=== PATIENT | female | born 1990 | race American Indian/Alaskan Native ===

== ENCOUNTER 2017-08-22 18:49 | Emergency (ER) | payer OTHER ==
[2017-08-22 18:55] VITALS: BP 120/83
--- NOTE | 2017-08-22 20:30 | Emergency Department Report ---
Chief Complaint: Upper Respiratory Infection Stated Complaint: FLU-LIKE SYMPTOMS Time Seen by Provider: 08/22/17 20:16 - HPI History of Present Illness: Patient is a 27-year-old [place]i female withAsthma history is presenting with 3 weeks of cough. Patient states cough was mild initially and nonproductive however over the past week is now productive of yellow sputum with some mild shortness of breath. Patient states the cough is uncontrollable. Patient denies fever nausea vomiting bodyaches diarrhea chest pain at this time. - ROS Review of Systems: Review of systems negative except for those systems in the HPI - Exam Vital Signs: Vital Signs 08/22/17 18:53 Temperature 98.5 F Pulse Rate 117 H Respiratory 20 Rate Blood Pressure 120/83 O2 Sat by Pulse 100 Oximetry Physical Exam: PHYSICAL exam patient's HEENT is within normal limits and note she is not in no acute distress lungs clear to auscultation however she does have a bronchitic cough. Heart tones are normal abdomen soft nontender MSE screening note: Focused history and physical exam performed. Due to findings the following was ordered: ED Disposition for MSE Clinical Impression: Acute upper respiratory infection Disposition: [id number]-01 TO HOME OR SELFCARE Is pt being admited?: No Does the pt Need Aspirin: No Condition: Fair Instructions: Upper Respiratory Infection (ED) Prescriptions: ALBUTEROL Inhaler [ProAir HFA Inhaler] 2 puff IH QID PRN #1 inhalation PRN Reason: Shortness Of Breath Doxycycline [Vibramycin CAP] 100 mg PO Q12HR #14 capsule predniSONE [Deltasone] 20 mg PO QDAY #5 tab traMADol [Ultram] 50 mg PO Q6HR PRN #10 tablet PRN Reason: Pain Referrals: PRIMARY CARE, [Primary Care Provider] - 3-5 Days
== END 2017-08-22 20:38 | disposition home or self-care (01) ==
LOC: ED 18:49
DX: J06.9 Acute upper respiratory infection, unspecified (principal)
CPT/HCPCS: 99282

== ENCOUNTER 2018-02-05 19:42 | Emergency (ER) | payer SELFPAY | END 2018-02-06 01:42 | disposition left against medical advice (07) | LOC: ED 19:42 | DX: N93.8 Other specified abnormal uterine and vaginal bleeding (principal); Z53.21 Procedure and treatment not carried out due to patient leaving prior to being seen by health care provider ==

== ENCOUNTER 2018-09-23 19:05 | Emergency (ER) | payer MEDICAID ==
[2018-09-23 19:59] VITALS: BP 113/69
[2018-09-23 20:35] LABS: Bilirubin,Urine NEG (Negative); Blood,Urine NEG (Negative); Color,Urine Yellow (Yellow); Protein,Urine <15 mg/dL mg/dL (Negative); Urobilinogen,Urine < 2.0 mg/dL (<2.0)
[2018-09-23] MEDS ORDERED: NACL 0.9% 1000 ML 1,000 ML IV ONE (20:58)
[2018-09-23 21:20] LABS: Basophils % (Auto) 0.2 % (0.0-1.8); Eosinophils # (Auto) 0.1 K/mm3 (0.0-0.4); Eosinophils % (Auto) 1.4 % (0.0-4.3); Hematocrit 37.4 % (30.3-42.9); Hemoglobin 12.8 gm/dl (10.1-14.3); Lymphocytes # (Auto) 2.5 K/mm3 (1.2-5.4); Lymphocytes % (Auto) 24.1 % (13.4-35.0); Mean Corpuscular HGB Conc 34 % (30-34); Mean Corpuscular Volume 86 fl (79-97); Monocytes # (Auto) 0.7 K/mm3 (0.0-0.8); Monocytes % (Auto) 6.4 % (0.0-7.3); Platelet Count 238 K/mm3 (140-440); Red Blood Count 4.37 M/mm3 (3.65-5.03); Red Cell Distribution Width 13.3 % (13.2-15.2)
[2018-09-23] MEDS ORDERED: TYLENOL ONE (21:43)
[2018-09-23] MEDS ORDERED: ZOFRAN ODT ONE (21:44)
[2018-09-23] MEDS ORDERED: TYLENOL PO ONE (21:46)
[2018-09-23 21:48] LABS: Alanine Aminotransferase 9 units/L (7-56); Albumin 4.2 g/dL (3.9-5); BUN/Creatinine Ratio 12; Blood Urea Nitrogen 7 mg/dL (7-17); Calcium 9.6 mg/dL (8.4-10.2); Hemolysis Index 5
--- NOTE | 2018-09-23 22:33 | Emergency Department Report ---
ED Abdominal Pain HPI - General Chief Complaint: Abdominal Pain Stated Complaint: ABDOMINAL PAIN(14 1/2 WKS ) Time Seen by Provider: 09/23/18 22:33 Source: patient, family Mode of arrival: Ambulatory Limitations: No Limitations - History of Present Illness Initial Comments: This is 28-year-old female here reports that she has abdominal pain at 14 weeks . Patient states that she has have a pelvic pain times one day and now it is worse with increased urinary frequency patient says that she urinated 32 times today. Denies any pain with urination. She only reports pressure. She says she was sent to the emergency room by her [facility] for ultrasound. She states that she wanted make sure that her cervix was not stretching out. Denies any vaginal bleeding or vaginal discharge. Denies any concern for STDs. Pain is 8 out of 10 and feels a pressure. Last measured cycle was the 2016. Pain is intermittent and crampy located to pelvic area and no alleviating or exacerbating factors. MD Complaint: abdominal pain Onset/Timin -: days(s) Location: suprapubic Radiation: none Migration to: no migration Severity: moderate Severity scale (0 -10): 8 Quality: other (pressure) Consistency: intermittent Improves With: nothing Worsens With: nothing Context: other () Associated Symptoms: other (urinary frequency). denies: nausea, vomiting, diarrhea, fever, chills, constipation, dysuria, hematemesis, hematochezia, melena, hematuria, anorexia, syncope - Related Data LMP Date: 07/23/18 Previous Rx's Medication Instructions Recorded Last Taken Type Albuterol Sulfate [Ventolin HFA] 2 puff IH Q4H PRN #1 hfa.aer.ad 09/16/14 Unknown Rx Amoxicillin 500 mg PO QID #40 tablet 09/16/14 Unknown Rx Fluticasone Propionate [Flonase] 2 sprays NS QDAY #1 bottle 09/16/14 Unknown Rx Loratadine [Claritin] 10 mg PO DAILY #30 tablet 09/16/14 Unknown Rx Promethazine /Codeine 5 ml PO Q6H PRN #150 udc 09/16/14 Unknown Rx [Phenergan/Codeine 6.25-10 mg/5 ml] predniSONE [Deltasone] 20 mg PO QDAY #5 tab 09/16/14 Unknown Rx ALBUTEROL Inhaler (OR & NICU) 2 puff IH QID PRN #1 inhalation 08/22/17 Unknown Rx [ProAir HFA Inhaler] Doxycycline [Vibramycin CAP] 100 mg PO Q12HR #14 capsule 08/22/17 Unknown Rx predniSONE [Deltasone] 20 mg PO QDAY #5 tab 08/22/17 Unknown Rx traMADol [Ultram] 50 mg PO Q6HR PRN #10 tablet 08/22/17 Unknown Rx Allergies Allergy/AdvReac Type Severity Reaction Status Date / Time No Known Allergies Allergy Unverified 09/16/14 16:23 ED Review of Systems ROS: Stated complaint: ABDOMINAL PAIN(14 1/2 WKS ) Other details as noted in HPI Constitutional: denies: chills, fever ENT: denies: throat pain, congestion Respiratory: denies: cough, shortness of breath, wheezing Cardiovascular: denies: chest pain, palpitations, edema, syncope Gastrointestinal: abdominal pain. denies: nausea, vomiting, diarrhea, constipation, hematemesis, melena, hematochezia Genitourinary: frequency. denies: urgency, dysuria, hematuria, discharge Musculoskeletal: denies: back pain, joint swelling, arthralgia, myalgia Skin: denies: rash, pruritus Neurological: denies: headache, weakness, abnormal gait, vertigo ED Past Medical Hx - Past Medical History Previous Medical History?: No - Surgical History Past Surgical History?: No - Family History Family history: hypertension - Social History Smoking Status: Never Smoker Substance Use Type: None - Medications Home Medications: Home Medications Medication Instructions Recorded Confirmed Last Taken Type Albuterol Sulfate [Ventolin HFA] 2 puff IH Q4H PRN #1 hfa.aer.ad 09/16/14 Unknown Rx Amoxicillin 500 mg PO QID #40 tablet 09/16/14 Unknown Rx Fluticasone Propionate [Flonase] 2 sprays NS QDAY #1 bottle 09/16/14 Unknown Rx Loratadine [Claritin] 10 mg PO DAILY #30 tablet 09/16/14 Unknown Rx Promethazine /Codeine 5 ml PO Q6H PRN #150 udc 09/16/14 Unknown Rx [Phenergan/Codeine 6.25-10 mg/5 ml] predniSONE [Deltasone] 20 mg PO QDAY #5 tab 09/16/14 Unknown Rx ALBUTEROL Inhaler (OR & NICU) 2 puff IH QID PRN #1 inhalation 08/22/17 Unknown Rx [ProAir HFA Inhaler] Doxycycline [Vibramycin CAP] 100 mg PO Q12HR #14 capsule 08/22/17 Unknown Rx predniSONE [Deltasone] 20 mg PO QDAY #5 tab 08/22/17 Unknown Rx traMADol [Ultram] 50 mg PO Q6HR PRN #10 tablet 08/22/17 Unknown Rx ED Physical Exam - General Limitations: No Limitations General appearance: alert, in no apparent distress - Head Head exam: Present: atraumatic, normocephalic, normal inspection - Eye Eye exam: Present: normal appearance - ENT ENT exam: Present: normal exam, normal orophraynx - Neck Neck exam: Present: normal inspection, full ROM. Absent: tenderness - Respiratory Respiratory exam: Present: normal lung sounds bilaterally. Absent: respiratory distress, chest wall tenderness - Cardiovascular Cardiovascular Exam: Present: regular rate, normal rhythm, normal heart sounds. Absent: systolic murmur, diastolic murmur - GI/Abdominal GI/Abdominal exam: Present: soft, normal bowel sounds. Absent: distended, tenderness, guarding, rebound, rigid, organomegaly, mass - Extremities Exam Extremities exam: Present: normal inspection, full ROM, normal capillary refill, other (No cce. + 2 pulses in all extremities, no neurovascular compromise). Absent: tenderness, pedal edema, joint swelling, calf tenderness - Back Exam Back exam: Present: normal inspection, full ROM, other (ambulates without any difficulties). Absent: tenderness, CVA tenderness (R), CVA tenderness (L), rash noted - Neurological Exam Neurological exam: Present: alert, oriented X3, normal gait - Psychiatric Psychiatric exam: Present: normal affect, normal mood - Skin Skin exam: Present: warm, intact, normal color. Absent: rash ED Course Vital Signs 09/23/18 09/23/18 19:54 22:15 Temperature 98.7 F Pulse Rate 95 H Respiratory 20 18 Rate Blood Pressure 113/69 O2 Sat by Pulse 100 Oximetry - Reevaluation(s) Reevaluation #1: 09/24/18 02:25 Patient received Tylenol 650 mg in triage area, she was given 1 L of normal saline by RN and Zofran 4 mg ODT. Patient has no nausea or vomiting. Abdominal pressures resolved ED Medical Decision Making - Lab Data Result diagrams: 09/23/18 21:01 09/23/18 21:01 Lab Results 09/23/18 09/23/18 09/23/18 Range/Units 20:17 21:01 21:01 WBC 10.5 (4.5-11.0) K/mm3 RBC 4.37 (3.65-5.03) M/mm3 Hgb 12.8 (10.1-14.3) gm/dl Hct 37.4 (30.3-42.9) % MCV 86 (79-97) fl MCH 29 (28-32) pg MCHC 34 (30-34) % RDW 13.3 (13.2-15.2) % Plt Count 238 (140-440) K/mm3 Lymph % (Auto) 24.1 (13.4-35.0) % [place] % (Auto) 6.4 (0.0-7.3) % Eos % (Auto) 1.4 (0.0-4.3) % Baso % (Auto) 0.2 (0.0-1.8) % Lymph # 2.5 (1.2-5.4) K/mm3 [place] # 0.7 (0.0-0.8) K/mm3 Eos # 0.1 (0.0-0.4) K/mm3 Baso # 0.0 (0.0-0.1) K/mm3 Seg Neutrophils % 67.9 (40.0-70.0) % Seg Neutrophils # 7.1 (1.8-7.7) K/mm3 Sodium 138 (137-145) mmol/L Potassium 3.6 (3.6-5.0) mmol/L Chloride 100.8 (98-107) mmol/L Carbon Dioxide 27 (22-30) mmol/L Anion Gap 14 mmol/L BUN 7 (7-17) mg/dL Creatinine 0.6 L (0.7-1.2) mg/dL Estimated GFR > 60 ml/min BUN/Creatinine Ratio 12 % Glucose 105 H (65-100) mg/dL Calcium 9.6 (8.4-10.2) mg/dL Total Bilirubin 0.30 (0.1-1.2) mg/dL AST 13 (5-40) units/L ALT 9 (7-56) units/L Alkaline Phosphatase 57 (35-129) units/L Total Protein 7.1 (6.3-8.2) g/dL Albumin 4.2 (3.9-5) g/dL Albumin/Globulin Ratio 1.4 % Lipase 37 (13-60) units/L HCG, Quant (0-4) mIU/mL Urine Color Yellow (Yellow) Urine Turbidity Clear (Clear) Urine pH 7.0 (5.0-7.0) Ur Specific [place] 1.010 (1.003-1.030) Urine Protein <15 mg/dl (Negative) mg/dL Urine Glucose (UA) Neg (Negative) mg/dL Urine Ketones Neg (Negative) mg/dL Urine Blood Neg (Negative) Urine Nitrite Neg (Negative) Urine Bilirubin Neg (Negative) Urine Urobilinogen < 2.0 (<2.0) mg/dL Ur Leukocyte Esterase Tr (Negative) Urine WBC (Auto) 1.0 (0.0-6.0) /HPF Urine RBC (Auto) 2.0 (0.0-6.0) /HPF U Epithel Cells (Auto) < 1.0 (0-13.0) /HPF 09/23/18 Range/Units 21:50 WBC (4.5-11.0) K/mm3 RBC (3.65-5.03) M/mm3 Hgb (10.1-14.3) gm/dl Hct (30.3-42.9) % MCV (79-97) fl MCH (28-32) pg MCHC (30-34) % RDW (13.2-15.2) % Plt Count (140-440) K/mm3 Lymph % (Auto) (13.4-35.0) % [place] % (Auto) (0.0-7.3) % Eos % (Auto) (0.0-4.3) % Baso % (Auto) (0.0-1.8) % Lymph # (1.2-5.4) K/mm3 [place] # (0.0-0.8) K/mm3 Eos # (0.0-0.4) K/mm3 Baso # (0.0-0.1) K/mm3 Seg Neutrophils % (40.0-70.0) % Seg Neutrophils # (1.8-7.7) K/mm3 Sodium (137-145) mmol/L Potassium (3.6-5.0) mmol/L Chloride (98-107) mmol/L Carbon Dioxide (22-30) mmol/L Anion Gap mmol/L BUN (7-17) mg/dL Creatinine (0.7-1.2) mg/dL Estimated GFR ml/min BUN/Creatinine Ratio % Glucose (65-100) mg/dL Calcium (8.4-10.2) mg/dL Total Bilirubin (0.1-1.2) mg/dL AST (5-40) units/L ALT (7-56) units/L Alkaline Phosphatase (35-129) units/L Total Protein (6.3-8.2) g/dL Albumin (3.9-5) g/dL Albumin/Globulin Ratio % Lipase (13-60) units/L HCG, Quant 27045 H (0-4) mIU/mL Urine Color (Yellow) Urine Turbidity (Clear) Urine pH (5.0-7.0) Ur Specific [place] (1.003-1.030) Urine Protein (Negative) mg/dL Urine Glucose (UA) (Negative) mg/dL Urine Ketones (Negative) mg/dL Urine Blood (Negative) Urine Nitrite (Negative) Urine Bilirubin (Negative) Urine Urobilinogen (<2.0) mg/dL Ur Leukocyte Esterase (Negative) Urine WBC (Auto) (0.0-6.0) /HPF Urine RBC (Auto) (0.0-6.0) /HPF U Epithel Cells (Auto) (0-13.0) /HPF - Radiology Data Radiology results: report reviewed Ultrasound OB dictated by radiologist's report reviewed by myself. Please see report below. Findings [facility] [address] [place] [address] Ultrasound Report Signed Patient: JER GARDINER MR#: [id number] : 1990 Acct:[id number] Age/Sex: 28 / F ADM Date: 09/23/18 Loc: ED Attending Dr: Ordering Physician: ELIZABETH AMADOR Date of Service: 09/24/18 Procedure(s): US OB >= 14 weeks Fetus Accession Number(s): [id number] cc: ELIZABETH AMADOR FINAL REPORT EXAM: US OB gt; = 14 WEEKS FETUS HISTORY: patient sent by OB for U/S for pelvic pressure COMPARISON: None available. TECHNIQUE: Several real-time grayscale and color Doppler images were obtained. FINDINGS: Single live IUP. Estimated gestational age 15 weeks 2 days. Estimated delivery date March 16, 2019. heart rate 165 beats per minute. BPD 3.1 centimeters 15 weeks 4 days. Head circumference 11.0 centimeters 15 weeks 2 days. Abdominal circumference 9.7 centimeters 15 weeks 6 days. Femoral length 1.6 centimeters 14 weeks 4 days. Placenta location posterior. No placenta previa. The cervix is closed measuring 6.2 centimeters in length. presentation cephalic. Limited evaluation of structures due to early gestational age. No gross abnormality demonstrated. Technologist notes no retroplacental fluid collection. No evidence of placenta previa demonstrated. IMPRESSION: Single live IUP. Estimated gestational age 15 weeks 2 days. Estimated delivery date March 16, 2019. No gross abnormality at this time. Transcribed By: LMA Dictated By: PILY MULLER MD Electronically Authenticated By: PILY MULLER MD Signed Date/Time: 09/24/18201 DD/ 3 TD/TT: 09/24/18203 - Medical Decision Making This is a 28-year-old female here report that she was sent by [facility] for OB ultrasound because they were closing. Patient states that she is having lower abdominal pressure with urinary frequency. Her urine showed trace leukocyte esterase otherwise normal therefore urine culture sent. She is not having any urinary burning. Patient says she drinks lots of water. OB ultrasound greater than 14 weeks dictated by radiologist's report reviewed by myself and shows Single live IUP. Estimated gestational age 15 weeks 2 days. Estimated delivery date March 16, 2019. No gross abnormality at this time. heart tone correlates with gestational age and ultrasound correlate with beta hCG. Patient received IV fluids, nausea medication and Tylenol 650 mg emergency room. She has no nausea, pain and feels better. I gave her results of her lab work to include CBC, BMP and hCG which were all stable and also give her results of her ultrasound and she voiced understanding. Patient follow-up with her [facility] 09/25/2018. Vital signs stable and she is a febrile. - Differential Diagnosis abdominal pain and , UTI, round ligament pain Critical care attestation.: If time is entered above; I have spent that time in minutes in the direct care of this critically ill patient, excluding procedure time. ED Disposition Clinical Impression: Urinary frequency Abdominal pain in Qualifiers: Trimester: first trimester Qualified Code(s): O26.891 - Other specified related conditions, first trimester Disposition: - TO HOME OR SELFCARE Is pt being admited?: No Does the pt Need Aspirin: No Condition: Stable Instructions: Abdominal Pain in (ED) Additional Instructions: follow-up with the [facility] in the morning. take a vitamin If you developed vaginal bleeding or recurrent abdominal pain, return to emergency room Increase her fluid intake Referrals: francia, [facility] on 09/25/2018 [Other] - 09/25/18 ZENAIDA FOX MD [Staff Physician] - 09/25/18 Forms: Work/School Release Form(ED)
--- NOTE | 2018-09-24 02:02 | Ultrasound Report ---
FINAL REPORT EXAM: US OB >= 14 WEEKS FETUS HISTORY: patient sent by OB for U/S for pelvic pressure COMPARISON: None available. TECHNIQUE: Several real-time grayscale and color Doppler images were obtained. FINDINGS: Single live IUP. Estimated gestational age 15 weeks 2 days. Estimated delivery date March 16, 2019. Fet al heart rate 165 beats per minute. BPD 3.1 centimeters 15 weeks 4 days. Head circumference 11.0 centimeters 15 weeks 2 days. Abdominal circumference 9.7 centimeters 15 weeks 6 days. Femoral length 1.6 centimeters 14 weeks 4 days. Placenta location posterior. No placenta previa. The cervix is closed measuring 6.2 centimeters in le ngth. presentation cephalic. Limited evaluation of structures due to early gestational age. No gross abnormality demon strated. Technologist notes no retroplacental fluid collection. No evidence of placenta previa demons trated. IMPRESSION: Single live IUP. Estimated gestational age 15 weeks 2 days. Estimated delivery date March 16, 2019. No gross abnormality at this time.
== END 2018-09-24 02:25 | disposition home or self-care (01) ==
LOC: ED 19:05
DX: O26.892 Other specified pregnancy related conditions, second trimester (principal); R10.9 Unspecified abdominal pain; R35.0 Frequency of micturition; Z3A.14 14 weeks gestation of pregnancy
CPT/HCPCS: 36415; 76805; 80053; 81001; 83690; 84702; 85025; 87086; Q0162